=== PATIENT | female | born 1995 | race Two or more races ===

== ENCOUNTER 2019-01-28 16:34 | Emergency (ER) | payer OTHER ==
[~2019-01-28] VITALS: Ht 160 cm; Wt 61.2 kg
== END 2019-01-28 22:18 | disposition home or self-care (01) ==
LOC: ER 16:34
DX: K52.89 Other specified noninfective gastroenteritis and colitis (principal)

== ENCOUNTER 2020-06-25 15:19 | Outpatient (CLI) | payer OTHER | END 2020-06-25 15:35 | disposition home or self-care (01) | LOC: TOM 15:19 | PROVIDERS: ATTEND General Practice | DX: D72.818 Other decreased white blood cell count (principal); D64.89 Other specified anemias; R06.02 Shortness of breath ==

== ENCOUNTER 2020-10-26 19:45 | Emergency (ER) | payer OTHER ==
[~2020-10-26] VITALS: Ht 160 cm; Wt 60.8 kg
== END 2020-10-26 22:16 | disposition home or self-care (01) ==
LOC: ER 19:45
DX: S93.492A Sprain of other ligament of left ankle, initial encounter (principal); W22.8XXA Striking against or struck by other objects, initial encounter; Y93.89 Activity, other specified; Y92.89 Other specified places as the place of occurrence of the external cause; Y99.8 Other external cause status